=== PATIENT | female | born 1965 | race Caucasian/White ===

== ENCOUNTER 2018-02-19 07:25 | Day surgery (SDC) | payer BC ==
[2018-02-19] MEDS: Lactated Ringers 1,000 ML IV SCH (08:16)
[2018-02-19] MEDS ORDERED: fentaNYL 100 MCG/2 ML SDV ONE (08:43)
[2018-02-19] MEDS ORDERED: Propofol 200 MG/20 ML SDV ONE (08:43)
--- NOTE | 2018-02-19 10:56 | OR ---
PREOPERATIVE DIAGNOSIS: Positive FIT test. POSTOPERATIVE DIAGNOSIS: Pancolonic diverticulosis, otherwise normal exam. PROCEDURE PROPOSED: Total flexible colonoscopy. PROCEDURE DONE: Total flexible colonoscopy. INDICATION: This is a 52-year-old female who was found to have a guaiac- positive stool on recent physical exam and was referred for her first colonoscopic exam. TECHNIQUE: The patient was brought to the endoscopy suite, placed in the left lateral decubitus position. She was sedated per [employer] with propofol. A flexible video colonoscope was then passed transanally and under visualization advanced to the cecum. She was found to have pancolonic diverticulosis noting diverticulosis throughout all levels of the colon. The ascending, transverse, descending, sigmoid, and rectal colon otherwise did not reveal any evidence of polyps or colitis or other abnormalities other than the diverticulosis. The scope was then withdrawn. She tolerated the procedure well. FINAL IMPRESSION: 1. Pancolonic diverticulosis. 2. No source for blood loss noted. PLAN: The patient is reassured. I felt she could wait 10 years before she needs a repeat colonoscopy. SCM: 02/19/2018 10:17:26 MODL: 02/19/2018 10:31:54 /[id number]
== END 2018-02-19 11:33 | disposition home or self-care (01) ==
LOC: VM.SDS 07:25
PROVIDERS: ATTEND Surgery
DX: K57.30 Diverticulosis of large intestine without perforation or abscess without bleeding (principal); I10 Essential (primary) hypertension; N95.0 Postmenopausal bleeding; R40.0 Somnolence; R53.82 Chronic fatigue, unspecified; I35.0 Nonrheumatic aortic (valve) stenosis; E66.9 Obesity, unspecified; I44.7 Left bundle-branch block, unspecified; M17.12 Unilateral primary osteoarthritis, left knee; Z68.41 Body mass index [BMI] 40.0-44.9, adult; Z79.899 Other long term (current) drug therapy; Z88.8 Allergy status to other drugs, medicaments and biological substances
CPT/HCPCS: J2704; J3010; J7120